=== PATIENT | female | born 1970 | race Caucasian/White ===

== ENCOUNTER 2020-09-10 12:27 | Emergency (ER) | payer MEDICARE ==
[~2020-09-10] VITALS: Ht 170.2 cm; Wt 81.8 kg
[2020-09-10 12:28] VITALS: BP 142/69
[2020-09-10] MEDS ORDERED: VRAY1.5C PO (12:47)
[2020-09-10] MEDS ORDERED: VYVA70CA3 PO (12:47)
[2020-09-10] MEDS ORDERED: ANOR1AER PO (12:47)
[2020-09-10] MEDS ORDERED: PROAAER10 INH (12:47)
[2020-09-10 13:30] LABS: BASO # 0.1 10^3/uL (0.0-0.2); EOS # 0.1 10^3/uL (0.0-0.5); EOS % 0.9 % (0.0-3.0); HEMATOCRIT 48.5 % (36.0-47.0); HEMOGLOBIN 16.5 g/dl (12.0-15.5); LYMPH # 2.6 10^3/uL (1.5-5.0); LYMPH % 26.1 % (24.0-44.0); MEAN CORPUSCULAR VOLUME 94.2 fl (80.0-96.0); MONO # 0.8 10^3/uL (0.0-0.8); MONO % 7.9 % (2.0-8.0); NEUTROPHILS # 6.4 10^3/uL (1.5-8.5); NEUTROPHILS % 63.6 % (36.0-66.0); PLATELET COUNT, AUTOMATED 226 10^3/uL (150-450); RED BLOOD COUNT 5.15 10^6/uL (4.00-5.40); WHITE BLOOD COUNT 10.1 10^3/uL (4.0-10.0)
[2020-09-10 13:57] LABS: ERYTHROCYTE SEDIMENTATION RATE 36 mm/hr (0-30)
[2020-09-10] MEDS: IBUPROFEN 800 MG TAB PO ONE ×2 (15:13→15:14)
--- NOTE | 2020-09-10 15:22 | REP ---
INDICATION: redness lateral, severe swelling, ulcer to bottom of foot COMPARISON: None. TECHNIQUE: There are four views. FINDINGS: O there is soft tissue edema over the dorsum. There are no lytic, blastic or destructive skeletal changes. There is no foreign body or calcification. No fracture or dislocation. There is a calcaneal plantar spur. IMPRESSION: Soft tissue edema Calcaneal plantar spur. Otherwise negative right foot. <Electronically signed by Panda Sigala > 09/10/20 [id number]
[2020-09-10] MEDS ORDERED: CEPH500T PO (15:57)
== END 2020-09-10 16:13 | disposition home or self-care (01) ==
LOC: M ED 12:27
DX: L03.115 Cellulitis of right lower limb (principal); L89.891 Pressure ulcer of other site, stage 1; E11.621 Type 2 diabetes mellitus with foot ulcer; E11.40 Type 2 diabetes mellitus with diabetic neuropathy, unspecified; J44.9 Chronic obstructive pulmonary disease, unspecified; J45.909 Unspecified asthma, uncomplicated; M19.90 Unspecified osteoarthritis, unspecified site; F41.9 Anxiety disorder, unspecified; F32.9 Major depressive disorder, single episode, unspecified; K58.9 Irritable bowel syndrome, unspecified; F17.210 Nicotine dependence, cigarettes, uncomplicated; Z88.2 Allergy status to sulfonamides; Z91.02 Food additives allergy status